=== PATIENT | female | born 1960 | race Hispanic/Latino ===

== ENCOUNTER 2020-10-09 10:13 | Emergency (ER) | payer OTHER ==
[2020-10-09] MEDS ORDERED: FENTANYL CITRATE PF 50 MCG/1 ML 2ML VIAL ONE (11:39)
[2020-10-09] MEDS ORDERED: ONDANSETRON 4MG INJ ONE (11:39)
[2020-10-09 11:40] LABS: BASOPHILS % (AUTO) 0.3 % (0.0-5.0); EOSINOPHILS % (AUTO) 0.4 % (0.0-8.0); HEMATOCRIT 41.5 % (36-48); LYMPHOCYTES % (AUTO) 5.3 % (21.0-51.0); MEAN CORPUSCULAR HGB CONC 33.7 g/dL (32.0-36.0); MEAN CORPUSCULAR VOLUME 89.1 fL (79-99); MONOCYTES % (AUTO) 3.3 % (3.0-13.0); NEUTROPHILS % (AUTO) 90.2 % (40.0-77.0); PLATELET COUNT (AUTO) 275 K/uL (130-400); RED BLOOD CELL COUNT(AUTO) 4.66 MIL/uL (4.00-5.50); RED CELL DISTRIBUTION WIDTH 11.8 % (11.0-15.5); WHITE BLOOD COUNT (AUTO) 12.6 K/uL (4.8-10.8)
[2020-10-09 11:51] LABS: CREATININE 0.7 mg/dL (0.5-1.5); POTASSIUM 3.7 mmol/L (3.5-5.1)
[2020-10-09 11:55] LABS: ALBUMIN 4.1 g/dL (3.5-5.0); BILIRUBIN,TOTAL 0.8 mg/dL (0.2-1.0); TOTAL PROTEIN, SERUM 7.3 g/dL (6.0-8.3)
[2020-10-09] MEDS ORDERED: IOHEXOL-350 75 ML VIAL IV ONE (12:19)
== END 2020-10-09 15:42 | disposition home or self-care (01) ==
LOC: EDH 10:13
DX: K59.00 Constipation, unspecified (principal); K80.20 Calculus of gallbladder without cholecystitis without obstruction; Z90.49 Acquired absence of other specified parts of digestive tract; Z98.890 Other specified postprocedural states
CPT/HCPCS: 36415; 74177; 80053; 83605; 85025; 86850; 86900; 86901; 96361; 96374; 96375; 99285; J2405; J3010; Q9967